=== PATIENT | male | born 1990 | race African-American/Black ===

== ENCOUNTER 2022-04-06 20:35 | Emergency (ER) | payer OTHER ==
[2022-04-06 20:39] VITALS: BP 142/90; PULSE 63; RESP 18; TEMP 98; BMI 29.0
[2022-04-06] MEDS ORDERED: ACETAMINOPHEN 500 MG TABLET (FP) PO ONE (21:44)
[2022-04-06] MEDS ORDERED: IBUPROFEN 600 MG TABLET (FP) PO ONE ×2 (21:44→21:47)
[2022-04-06] MEDS ORDERED: ACETAMINOPHEN 500 MG TABLET (FP) ONE (21:48)
== END 2022-04-06 22:20 | disposition home or self-care (01) ==
LOC: JERFT 20:35
DX: H57.11 Ocular pain, right eye (principal)
CPT/HCPCS: 99283-25